=== PATIENT | male | born 1960 | race Caucasian/White ===

== ENCOUNTER 2016-07-05 06:32 | Observation (INO) | payer SELFPAY ==
--- NOTE | ~2016-07-05 | DS ---
Discharge Summary [facility] [address] [place]. [address] NAME: IVY OLIVEROS : 60 STATUS : DIS Ez PAT#: [id number] AGE: 56 ADM/REG DATE : 07/05/16 MR#: [id number] REPORT SERV DATE: 07/07/16 DICTATED BY: ANDRES AGGARWAL DATE: 07/06/16 REPORT STATUS : Draft TRANSCRIBED BY: MODL DATE: 07/06/16 ADMISSION DATE: 07/05/2016 DISCHARGE DATE: 07/06/2016 DISCHARGE DIAGNOSES: Include: 1. Ischemic cardiomyopathy and chest pain. 2. LV systolic dysfunction with ejection fraction 38%. 3. Tobacco abuse. 4. Diabetes type 2 with most recent hemoglobin A1c of 7.0. 5. History of seizure disorder. 6. History of noncompliance and drug-seeking behavior. 7. Abdominal pain. 8. History of gastric ulcers. 9. Homeless. DISCHARGE MEDICATIONS: Aspirin 81 mg daily; Lipitor 40 mg daily; BuSpar 10 mg twice; ferrous sulfate 325 mg daily; Flonase nasal spray one spray nasally daily; gabapentin 300 mg three times a day; Keppra 500 mg twice a day; NovoLog insulin on a sliding scale with meals; Levemir 32 units daily; multivitamin one tab daily; metoprolol 25 mg p.o. twice a day, prescription was written for this; Protonix 40 mg p.o. daily, prescription was written for this as well; Tums p.r.n.; Phenergan 25 mg every eight hours p.r.n.; Prinivil 2.5 mg daily; Percocet 7.5/325 one tablet every six hours p.r.n. #12; Imdur ER 30 mg p.o. daily prescription was written for this. HISTORY OF PRESENT ILLNESS: This is a 56-year-old male with multiple medical issues who presented originally to [facility] with complaints of chest pain in the left side. Please see initial H and P of Dr. Nadege Torres, this patient admitted to the Hospitalist service for further evaluation and treatment. CONSULTANTS DURING THIS ADMISSION: Include [facility] Dr. Barksdale, please also see the discharge summary of Dr. Nam Stallings. This patient was transferred from [facility] to [facility] for heart catheterization. CONTINUATION OF HOSPITAL COURSE: I began seeing the patient on 07/05/2016 where he was status post his heart catheterization showing a 90% stenosis left circumflex that was unable to be stented. Cardiology recommended medical management with the addition of metoprolol and Imdur. I also counseled extensively cessation of his smoking; however, he refused nicotine patch and continued to leave the unit to go smoke outside, and also during conversation, the patient would repeatedly ask for more and escalating pain medicines up into including IV Dilaudid, however, this was not given to the patient. He was started on the Imdur and metoprolol and also given IV Protonix which he tolerated well. Blood pressures have been stable, and he has been chest pain free and was felt safe for discharge home on 07/06/2016, but instructed to follow up with his primary care in two to three weeks; to follow up with Cardiology, Dr. Crane, outpatient; and to follow up with GI if his symptoms persist or worsen. The patient will be discharged on the above medication regimen. Questions were answered at bedside. He is in agreement with this going forward. His Discharge Summary [facility] [address] [place]. [address] NAME: IVY OLIVEROS : 60 STATUS : DIS Ez PAT#: [id number] AGE: 56 ADM/REG DATE : 07/05/16 MR#: [id number] REPORT SERV DATE: 07/07/16 DICTATED BY: ANDRES AGGARWAL DATE: 07/06/16 REPORT STATUS : Draft TRANSCRIBED BY: MODL DATE: 07/06/16 primary care is the [facility] as well. Appreciate cardiology's help in this patient's care. JOSH/YOLANDAL Andres Aggarwal NP / [id number] CC: Annamaria Reed M.D.
[~2016-07-05 06:32] MED LIST: *UNABLE2; ACETSUP325 PR; BUSPAR10 PO; COREG3 PO; COREG6 PO; FERROUS SULF325 M1 PO; FLONASE NAS; KEPPRA500 PO; LEVEMIR SC; LIPITOR40 PO; MULTIVIT/MIN PO; NASAL MOIST0.65 % NAS; NEUR300 PO; NOVOLOG SC; OCEAN NAS; PERCOCET 10/3251 TAB PO; PR25 PO; PRILO PO; PRIN2.5 PO; REFRESH PLUS0.5 % OPH; T PO; TEARS PURE OPH; TUMSROLL PO; ZESTRIL2.5 MG PO; ZOL100 PO; ZYRTEC ALLGY10 MG PO; [UNRECOGNIZED DRUG - OTHER] PO
[2016-07-06 08:57] LABS: BASOPHILS 0.2 %; BASOPHILS ABSOLUTE 0.01 10/3/uL (0.0-0.16); EOSINOPHILS 0.9 %; EOSINOPHILS ABSOLUTE 0.05 10/3/uL (0.0-0.53); HEMATOCRIT 31.3 % (40.0-51.0); HEMOGLOBIN 10.3 g/dL (13.6-17.8); IMMATURE GRANULOCYTES 0.2 %; IMMATURE GRANULOCYTES ABSOLUTE 0.01 10/3/uL (0.0-0.11); LYMPHOCYTES 13.7 %; LYMPHOCYTES ABSOLUTE 0.75 10/3/uL (0.67-4.30); MEAN CORPUS HGB CONC 32.9 g/dL (32.0-36.0); MEAN CORPUSCULAR HEMOGLOB 29.6 pg (26.0-34.0); MONOCYTES 9.3 %; MONOCYTES ABSOLUTE 0.51 10/3/uL (0.21-1.20); NEUTROPHILS 75.7 %; NEUTROPHILS ABSOLUTE 4.14 10/3/uL (2.02-8.40); PLATELET COUNT 187 10/3/uL (150-400); RBC DISTRIBUTION WIDTH 13.2 % (12.0-16.0); RED CELL COUNT 3.48 10/6/uL (4.7-6.1); WHITE BLOOD CELLS 5.5 10/3/uL (4.5-10.5)
[2016-07-06 08:58] LABS: MANUAL DIFF NO %; MEAN CORPUSCULAR VOLUME 89.9 fL (80-100)
[2016-07-06 09:25] LABS: BUN (BLOOD UREA NITROGEN) 8 MG/DL (6-23); CALCIUM, SERUM 7.8 MG/DL (8.5-10.4); CHLORIDE, SERUM 107 MMOL/L (96-112); CO2 (CARBON DIOXIDE) 24 MMOL/L (24-34); CREATININE 0.77 MG/DL (0.70-1.30); GFR AFRICAN AMERICAN 118 ML/MIN (>=60); GFR NON AFRICAN AMERICAN 101 ML/MIN (>=60); GLUCOSE, SERUM 280 MG/DL (60-99); POTASSIUM, SERUM 3.7 MMOL/L (3.5-5.3); SODIUM, SERUM 139 MMOL/L (135-148)
[2016-07-06] MEDS ORDERED: IMDUR30 PO (11:46)
[2016-07-06] MEDS ORDERED: NITROQUICK0.4 MG SL (11:46)
[2016-07-06] MEDS ORDERED: PROTONIX PO (11:46)
[2016-07-06] MEDS ORDERED: LOP25 PO (11:47)
[2016-07-06] MEDS ORDERED: PERCOCET 7.5/321 TAB PO (11:53)
== END 2016-07-06 14:38 | disposition home or self-care (01) ==
LOC: SSU1 06:32
PROVIDERS: Internal Medicine Cardiovascular Disease
DX: I25.110 Atherosclerotic heart disease of native coronary artery with unstable angina pectoris (principal); I25.2 Old myocardial infarction; J98.4 Other disorders of lung; E11.9 Type 2 diabetes mellitus without complications; I25.5 Ischemic cardiomyopathy; G40.909 Epilepsy, unspecified, not intractable, without status epilepticus; Z79.82 Long term (current) use of aspirin; Z79.899 Other long term (current) drug therapy; Z79.4 Long term (current) use of insulin
CPT/HCPCS: 80048; 82962; 85025; 85347; 93005; 93458; 96374; 96375; 96376; 99152; 99153; A9270-GY; C1725; C1769; C1887; C1894; C9113; G0378; J1170; J2250; J2370; J2405; J3010; Q9967